=== PATIENT | male | born 2005 | race Caucasian/White ===

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

== ENCOUNTER 2025-01-20 12:36 | Emergency (ER) | payer OTHER, MEDICAID, SELFPAY ==
--- NOTE | ~2025-01-20 | XR_ITS ---
EXAMINATION: XR ANKLE, RIGHT CLINICAL INFORMATION: swelling/pain COMPARISON: None available. TECHNIQUE: AP, lateral, and mortise views of the right ankle. FINDINGS: No fracture, dislocation, or suspicious bone lesion. Normal bone mineralization. Normal alignment. The mortise is intact. The talar dome is normal. Joint spaces are preserved. No significant arthropathy. No definite ankle joint effusion. Mild circumferential soft tissue swelling. XR/XR ankle RT min 3V IMPRESSION: 1. No acute bony abnormalities of the right ankle. Electronically signed by: Pk Schrader MD 01/20/2025 01:18 PM EST
--- NOTE | ~2025-01-20 | XR_ITS ---
EXAMINATION: XR FOOT, RIGHT CLINICAL INFORMATION: pain, swelling COMPARISON: April 13, 2018 TECHNIQUE: AP, lateral, and oblique views of the right foot. FINDINGS: The bones and soft tissues are normal. No fracture. Alignment is anatomic. Joint spaces are maintained. XR/XR foot RT min 3V IMPRESSION: Unremarkable right foot. Electronically signed by: Vinicio Day MD 01/20/2025 01:20 PM [facility]
[2025-01-20 12:48] VITALS: BP 120/64; PULSE 62; RESP 18; TEMP 36.7; O2SAT 99; BMI 38.0
--- NOTE | 2025-01-20 13:26 | ED_ITS ---
HPI - Extremity Injury (Lower) General Chief Complaint: Extremity Injury, Lower Stated Complaint: Injury Time Seen by Provider: 01/20/25 13:25 Source: patient and old records reviewed Mode of arrival: ambulatory Limitations: no limitations History of Present Illness ED Provider: Katerina Garcia PA-C HPI Narrative: This is a 19-year-old male who presents emergency department with concerns of right ankle pain for the last 3 days. Patient denies any known injury. Reports that he spends a lot of time standing on his feet. He reports that he has had increased swelling to his right ankle with the associated pain. No former injury to the ankle and foot in the past. No calf pain. No recent travel, surgery, or hospitalizations. No other complaints or concerns at this time. MD complaint: ankle injury and foot injury Severity: moderate Relieving factors: nothing Exacerbating factors: weight bearing, movement and palpation Associated symptoms: swelling Related Data Previous Rx's ?Medication ?Instructions ?Recorded amoxicillin 875 mg-potassium 1 tab PO BID 7 days #14 t abs 01/20/23 clavulanate 125 mg tablet ibuprofen 600 mg tablet 600 mg PO Q6H PRN pain #30 t abs 01/20/23 chlorhexidine gluconate 0.12 % 15 ml buccal DAILY #120 mL 01/21/23 mouthwash Allergies Allergy/AdvReac Type Severity Reaction Status Date / Time No Known Allergies (No Known Allergy Verified 01/20/25 12:49 Allergies*) Review of Systems Review of Systems: Constitutional : No Fever, No Chills ENT/Mouth : No sore throat, No Rhinorrhea Eyes: No Eye Pain, No Swelling, No Redness Cardiovascular : No Chest Pain, No SOB Respiratory : No Cough, No Sputum Gastrointestinal : No Nausea, No Vomiting, No Diarrhea, No abdominal Pain Genitourinary : No Dysuria, No Hematuria Musculoskeletal : No joint pain, No Myalgias, +Joint Swelling Skin : No Skin Lesions Neuro : No Weakness, No Numbness, No Headache All other systems reviewed and are negative Yes all other systems are reviewed and are negative Constitutional: Constitutional: Reports as per [facility] Social History Social History Advance Directives: No Advance Directives Information Provided: No Physical Exam Exam: Exam: General: Awake, alert, and oriented X3. No acute distress. HEENT: Normal inspection CVS: Normal heart rate and rhythm. Pulses normal. Respiratory: No respiratory distress Skin: Warm, dry, no rashes noted to exposed skin. Normal skin color. Normal skin turgor. Extremities: mild edema noted along the dorsum of the right foot with mild tenderness palpation. He has no medial or lateral malleoli tenderness. Strong DP PT pulses. No overlying erythema or rashes. No open wounds. Able to plantar and dorsiflex. Sensation intact. Neuro: Oriented X 3. No motor deficit. No sensory deficit. Vital Signs: Vital Signs: Last Vital Signs Temp 98.0 F 01/20/25 14:20 Pulse 62 01/20/25 14:20 Resp 18 01/20/25 14:20 BP 120/64 01/20/25 14:20 Pulse Ox 99 01/20/25 14:20 O2 Del Method Room Air 01/20/25 14:20 BMI result Body Mass Index 38.0 Medical Decision Making Medical Decision Making MDM Narrative: This is a 19-year-old male who presents emergency department with complaints of atraumatic right ankle pain for the last 2-3 days. Unknown injury. On arrival, vital signs within normal limits. He is speaking full sentences under no acute distress. Right foot dorsal aspect there is mild edema noted, no calf tenderness. Malleoli are nontender. X-rays were obtained revealing no acute bony abnormalities. Patient unsure of any injury however given swelling and pain with weight-bearing, will place patient in a walking boot, and crutches. Given conservative treatment measures and given strict return precautions. He understands and agrees with plan. Patient stable for discharge. Differential Diagnosis Differential Diagnoses: The differential diagnosis associated with the presentation includes Fracture, contusion, sprain, strain Radiology Impression Discussion of test interpretation with radiology: I have reviewed the radiologist's reading. Radiologist Impression: FINDINGS: The bones and soft tissues are normal. No fracture. Alignment is anatomic. Joint spaces are maintained. XR/XR foot RT min 3V IMPRESSION: Unremarkable right foot. Electronically signed by: Vinicio Day MD 01/20/2025 01:20 PM [facility] Dictated By: Vinicio Day MD XR/XR ankle RT min 3V IMPRESSION: 1. No acute bony abnormalities of the right ankle. Electronically signed by: Pk Schrader MD 01/20/2025 01:18 PM [facility] Dictated By: Pk Schrader MD Discharge Plan Discharge Clinical Impression: Ankle sprain and strain Right foot strain Qualifiers: Encounter type: initial encounter Qualified Code(s): S96.911A - Strain of unspecified muscle and tendon at ankle and foot level, right foot, initial encounter Patient Disposition: Home, Self-Care Instructions: Ankle Sprain (ED), P.R.I.C.E. Treatment (ED), Walking Boot (ED) Additional Instructions: You were seen in the emergency department due to right foot and ankle pain and swelling. Your x-rays do not show any broken bones. It is unclear why you have pain and inflammation in your ankle and foot however this should resolve over the next several days up to several weeks. Please rest, ice, and elevate your right foot and ankle. Use crutches and walking boot as needed. Use this when your weight-bearing. You do not need to keep the walking boot on at all times. Use the walking boot until you no longer have pain with weight-bearing. You may alternate between ibuprofen and or Tylenol as needed for pain and symptoms. If any new or worsening symptoms occur including but not limited to worsening pain, decreased sensation in your foot, color changes, please seek emergent care. You can continue to have pain and symptoms in your right foot and ankle after resting for several weeks, you can follow-up with the clinical application specialist, call to make an appointment. Prescriptions: No Action amoxicillin-pot clavulanate 875-125 mg tablet 1 tab PO BID 7 Days Qty: 14 0RF ibuprofen 600 mg tablet 600 mg PO Q6H PRN (Reason: pain) Qty: 30 0RF chlorhexidine gluconate 0.12 % mouthwash 15 ml buccal DAILY Qty: 120 0RF Referrals: [facility] [place]Provider Group] Stand Alone Forms: Work/School Release Interventions: ED Discharge Assessment Last Done: 01/20/25 14:20 Discharge Date/Time: 01/20/25 14:21 Print Language: Hong Konger
[2025-01-20 14:20] VITALS: BP 120/64; PULSE 62; RESP 18; TEMP 36.7; O2SAT 99
--- NOTE | 2025-01-20 14:21 | PC.NURSE ---
Pt tolerated walking boot placement well, fitting adjusted, crutches adjusted to comfort and correct positioning. Crutches education received, pt able to demonstrate safe and proper technique prior to DC
--- OUTSIDE RECORDS SUMMARY | 2025-01-20 18:31 | XMS_ITS | Clinical Summary ---
Author Organization [facility] Address [address] [facility] [address] [place] [id number] Phone Care Team Providers Care Forge Operator Name Role Phone Gema Marina MD Primary Care Provider [phone] Allergies No known active allergies Active Problems Problem Noted Date Diagnosed Date History of constipation 11/11/2016 Obesity due to excess calories 11/09/2016 Social History Tobacco Use Types Packs/Day Years Used Date Smoking Tobacco: Never Assessed Education Answer Date Recorded Are you interested in more education? Not on damaris e 06/24/2022 Are you concerned about learning? Not on file 06/24/2022 No 06/24/2022 No 06/24/2022 Digital Access Answer Date Recorded No 07/25/2022 No 07/25/2022 No 07/25/2022 Reliable internet access at home? Not on file 07/25/2022 Device with a working camera? Not on file Sex and Gender Information Value Date Recorded Sex Assigned at Not on file Legal Sex Male 4:46 PM EDT Gender Identity Not on file Sexual Orientation Not on file Last Filed Vital Signs Vital Sign Reading Time Taken Comments Blood Pressure - - Pulse - - Temperature - - Respiratory Rate - - Oxygen Saturation - - Inhaled Oxygen Concentration - - Weight 64.7 kg (142 lb 9.6 oz) 11/09/2016 3:24 P M EDT Height 148 cm (4' 10.27 ) 11/09/2016 3:24 PM EDT Body Mass Index 29.53 11/09/2016 3:24 PM EDT Body Mass Index Percentile 98.74% 11/09/2016 3:2 4 PM EDT Growth Chart: CDC (Boys, 2-2 0 Years) Plan of Treatment Health Maintenance Due Date Last Done Comments BMI ASSESSMENT 2008 DEVELOPMENTAL/BEHAVIORAL SCREENING (PHQ, PSC, or SWYC) 2008 DEPRESSION SCREENING 2017 SMOKING Hx and SMOKELESS TOBACCO SCREENING 2018 MENINGOCOCCAL VACCINES (B) (1 of 2 - Standard) 2021 ADOLESCENT UNIVERSAL LIPID SCREENING 2022 HEPATITIS C SCREENING 05/27/2023 HIV ONE-TIME SCREENING (18-65 YEARS) 05/27/2023 INFLUENZA VACCINE (#1) 2024 , 12/04/2014, 12/06/2006 COVID-19 VACCINE (3 - season) 2024 10/07/2020, 09/16/2020 COMBINED DTaP,Tdap,Td (7 - Td or Tdap) 05/31/2026 05/31/2016, 06/01/2009, 09/04/2006, Additional history exists HEPATITIS B VACCINES Completed 01/10/2006, 2005, 2005 HIB VACCINES Completed 09/04/2006, 10/2006, 2005, Additional history exists PNEUMOCOCCAL VACCINES (0-49 years) Completed 09/04/2006, 01/10/2006, 2005, Additional history exists HEPATITIS A VACCINES Completed 12/06/2006, 05/30/19 07 MMR VACCINES Completed 06/01/2009, 05/29/2006 VARICELLA VACCINES Completed 06/01/2009, 05/29/2006 MENINGOCOCCAL VACCINES (ACWY) Aged Out 05/31/2016 No longer eligible based on patient's age to complete this topic HPV VACCINES Completed 09/25/2017, 05/31/2016 Medical Devices Not on file Insurance [employer] HMO POS EPO [address] [facility] [facility] EPO B[place] [id number] AETNA O POS EPO AETNA O POS EPO AETNA O POS EPO AETNA O POS EPO [place] [id number] AETNA O POS EPO [place] [id number] AETNA O POS EPO AETNA O POS EPO AENA O POS EPO AETNA O POS EPO AETNA O POS EPO AETNA O POS EPO [facility] EPO AENA O POS EPO AETNA O POS EPO AETNA O POS EPO Care Teams Forge Operator Relationship Specialty Start Date End Date Gema Marina MD [address] [place] [address] PCP - General Pediatrics 11/09/16 Additional Source Comments The information contained in this document represents components of the legal health record. It is not the complete legal health record.[facility]
== END 2025-01-20 14:21 | disposition home or self-care (01) ==
PROVIDERS: Emergency Provider Emergency Medicine; PCP Internal Medicine
DX: S93.401A Sprain of unspecified ligament of right ankle, initial encounter (principal); S96.911A Strain of unspecified muscle and tendon at ankle and foot level, right foot, initial encounter; X58.XXXA Exposure to other specified factors, initial encounter; Y93.9 Activity, unspecified; Y92.9 Unspecified place or not applicable
CPT/HCPCS: 73610; 73630; 99283

== ENCOUNTER → 2025-01-20 13:05 | Outpatient (BNV) | payer OTHER, MEDICAID, SELFPAY | PROVIDERS: Emergency Provider Emergency Medicine; PCP Internal Medicine; Visit Provider Radiology Diagnostic Radiology | DX: R22.41 Localized swelling, mass and lump, right lower limb (principal); M25.571 Pain in right ankle and joints of right foot; M79.671 Pain in right foot | CPT/HCPCS: 73610; 73630 ==

== ENCOUNTER 2025-01-29 17:57 | Emergency (ER) | payer OTHER, MEDICAID, SELFPAY ==
--- NOTE | ~2025-01-29 | US_ITS ---
CLINICAL HISTORY: Bilateral leg swelling foot swelling Venous duplex ultrasound bilateral lower extremity Comparison: None provided Findings: The visualized deep veins are fully compressible with normal Doppler color flow and spectral tracings. No popliteal cyst. IMPRESSION: 1. Negative for bilateral lower extremity deep vein thrombosis. This document has been electronically signed by: Huma Leon MD on 01/29/2025 20:24:48
[2025-01-29 18:59] VITALS: BP 136/70; PULSE 82; RESP 20; TEMP 36.3; O2SAT 95; BMI 38.7
--- NOTE | 2025-01-29 19:02 | ED_ITS ---
HPI - General Adult General Chief complaint: General Medical Stated complaint: swollen feet bilateral Time Seen by Provider: 01/29/25 22:47 Source: patient, family, RN notes reviewed and old records reviewed Mode of arrival: ambulatory Limitations: no limitations History of Present Illness ED Provider: Keila RUBIO narrative: Patient is a 19 year old male presenting today with a 4 day history of bilateral ankle pain and swelling. Pt states 4 days ago , started with pain in right medial ankle. However, the pt was seen 01/20 for the pain, Xray of right foot and ankle were unremarkable and he was discharged with a walking boot. Pt states 2 days ago the swelling developed and the pain has since resolved. No erythema, warmth, or pitting. No fever or chills. Pt does work at [employer] and is on his feet all day. The mother reports that she tries to avoid excessive salt when cooking as the patient has been previously told he has high blood pressure at a PCP visit but the patient does eat chips daily. Has tried warm soaks and elevation of his feet. Related Data Previous Rx's ?Medication ?Instructions ?Recorded amoxicillin 875 mg-potassium 1 tab PO BID 7 days #14 t abs 01/20/23 clavulanate 125 mg tablet ibuprofen 600 mg tablet 600 mg PO Q6H PRN pain #30 t abs 01/20/23 chlorhexidine gluconate 0.12 % 15 ml buccal DAILY #120 mL 01/21/23 mouthwash Allergies Allergy/AdvReac Type Severity Reaction Status Date / Time No Known Allergies (No Known Allergy Verified 01/29/25 19:01 Allergies*) Review of Systems 2 Constitutional: Constitutional: Reports as per HPI, Denies chills, Denies fatigue, Denies fever(s) and Denies headache(s) ENT: Denies headache(s) Cardiovascular: Cardiovascular: Denies chest pain, Reports pedal edema, Reports leg edema and Denies dyspnea Respiratory: Respiratory: Denies cough and Denies dyspnea Gastrointestinal: Gastrointestinal: Denies abdominal pain, Denies constipation and Denies vomiting Genitourinary: Genitourinary: Denies difficulty urinating and Denies dysuria Neurologic: Denies headache(s) and Denies focal weakness Endocrine: Endocrine: Denies fatigue [facility] Social History Social History Smoked in Last 30 Days: No Use of substances other than those prescribed or required for medical reasons: No Advance Directives: No Advance Directives Information Provided: Yes Do you have a plan to hurt others: No Plan Physical Exam ED Vital Signs: Vital Signs - 24 hr 01/29/25 18:59 01/29/25 22:03 01/29/25 23:26 Temperature 97.4 F 98.5 F 98.5 F Pulse Rate 82 75 75 Respiratory Rate 20 16 16 Blood Pressure 136/70 132/61 132/61 Pulse Oximetry 95 96 96 Oxygen Delivery Method Room Air Room Air Room Air BMI result Body Mass Index 38.7 Const General: healthy appearing, comfortable, no acute distress, alert and awake Nutritional Appearance: well nourished Orientation/consciousness: patient oriented x3 HENMT Head: Yes normocephalic and Yes atraumatic Eyes Eyelids: Yes eyelids normal Conjunctivae: conjunctivae normal Sclerae: sclerae normal Corneas: corneas normal Neck Neck: Yes full ROM Resp Effort & Inspection: normal respiratory effort, able to speak in complete sentences, no audible wheezes and not labored Cardio Other: 1+ nonpitting edema to lower extremities bilaterally Skin General skin exam: no rashes or lesions noted and elasticity normal Neuro General: patient oriented x3 Cognition (Neuro): normal cognition Extrem Other: Moving all extremities well without any obvious deformities Course Course Course Narrative: RME: 19 yold male presents to the ED for bilateral feet leg swelling for couple of days without any trauma. patient states no chest pain or shorntess of breath. labs, xray ordeed Medical Decision Making Medical Decision Making [facility] Narrative: 19-year-old male presents for evaluation of atraumatic leg swelling bilaterally. He was seen here on 01/20/2025 and had x-rays of the ankles that did not show any fractures. Today he reports his pain is still present and now he has leg swelling. He has no evidence of infectious process, ultrasounds are negative for DVT. He has no history of CHF. There was again no trauma. He has good skin color, extremities are warm, well perfused. I suspect the patient's symptoms are likely related to lifestyle with increased sodium in his diet and standing daily. I advised changes to these and the patient can safely be discharged. Differential Diagnosis Differential Diagnoses: The differential diagnosis associated with the presentation includes Dependent edema Hypovolemia DVT Cellulitis CHF Lab Data [facility] Lab Attestation statement: I reviewed the patient's lab results. Mild leukocytosis of unclear etiology, no significant anemia. Normal platelet count. No electrolyte abnormalities warranting dimension. 01/29/25 19:26 01/29/25 19:26 Labs: Lab Results 01/29/25 Range/Units 19:26 WBC 10.9 H (4.8-10.8) X10*3/uL RBC 5.53 (4.60-5.80) X10*6/uL Hgb 13.7 L (14.0-18.0) g/dl Hct 43.9 (42.0-52.0) % MCV 79.4 L (80.0-98.0) fL MCH 24.8 L (27.0-33.0) pg MCHC 31.2 (31.0-36.0) g/dl RDW 13.9 (11.0-16.0) % Plt Count 307 (160-400) X10*3/uL MPV 10.9 (9.4-12.4) fL Immature Gran % (Auto) 0.4 (0.0-0.4) % Neut % (Auto) 55.9 (45-73) % Lymph % (Auto) 23.8 (20-40) % Wirt % (Auto) 10.8 (2-11) % Eos % (Auto) 8.3 H (0-4) % Baso % (Auto) 0.8 (0-2) % Lymph # (Auto) 2.6 (1.2-4.9) X10*3/uL Wirt # (Auto) 1.2 (0.1-1.2) X10*3/uL Eos # (Auto) 0.9 H (0.0-0.4) X10*3/uL Baso # (Auto) 0.1 (0.0-0.2) X10*3/uL Abs Immat Gran (auto) 0.04 H (0.00-0.03) X10*3/uL Absolute Neuts (auto) 6.1 (2.0-8.3) x10*3/uL Absolute Nucleated RBC 0.000 (0.0-0.012) X10*3/uL Nucleated RBC % (auto) 0.0 (0.0-0.2) /100WBC PT 12.8 (11.2-13.5) SEC INR 1.0 (0.9-1.1) APTT 26.9 (26.7-34.1) SEC Sodium 140 (135-145) mmol/L Potassium 4.3 (3.3-5.1) mmol/L Chloride 105 (96-108) mmol/L Carbon Dioxide 28 (22-29) mmol/L Anion Gap 11 L (12-20) BUN 17 H (9-16) mg/dL Creatinine 0.80 (0.5-1.4) mg/dL Estim Creat Clear Calc 171.8 Estimated GFR > 60 Random Glucose 89 (60-115) mg/dL Calcium 9.3 (8.4-10.2) mg/dL Total Bilirubin 0.5 (0.0-1.0) mg/dL AST 34 (5-37) U/L ALT 42 H (0-40) U/L Alkaline Phosphatase 102 (39-117) U/L NT-Pro-B Natriuret Pep 53.8 (<300) pg/mL Total Protein 7.4 (6.5-8.0) g/dL Albumin 4.9 (3.5-5.0) g/dL Radiology Impression Discussion of test interpretation with radiology: I have reviewed the radiologist's reading. Radiologist Impression: Findings: The visualized deep veins are fully compressible with normal Doppler color flow and spectral tracings. No popliteal cyst. IMPRESSION: 1. Negative for bilateral lower extremity deep vein thrombosis. This document has been electronically signed by: Huma Leon MD on 01/29/2025 20:24:48 Discharge Plan Discharge Clinical Impression: Dependent edema Patient Disposition: Home, Self-Care Instructions: Leg Edema (ED) Additional Instructions: Your workup in the ER today was reassuring. Your ultrasound shows no evidence of blood clots. Your blood work was reassuring pain There is no evidence of infection pain Your leg swelling is likely due to multiple factors including salt intake and standing for long periods of time I recommend reducing your salt intake. Elevate your legs above your heart while resting. Follow up with your primary doctor, return for new or worsening symptoms Prescriptions: No Action amoxicillin-pot clavulanate 875-125 mg tablet 1 tab PO BID 7 Days Qty: 14 0RF ibuprofen 600 mg tablet 600 mg PO Q6H PRN (Reason: pain) Qty: 30 0RF chlorhexidine gluconate 0.12 % mouthwash 15 ml buccal DAILY Qty: 120 0RF Stand Alone Forms: Work/School Release Interventions: ED Discharge Assessment Last Done: 01/29/25 23:26 Discharge Date/Time: 01/29/25 23:27 Print Language: Thai
[2025-01-29 19:36] LABS: MANUAL DIFF FLAG NO
[2025-01-29 19:46] LABS: Hematocrit 43.9 % (42.0-52.0); Hemoglobin 13.7 g/dl (14.0-18.0); Imm Gran Abs Auto 0.04 X10*3/uL (0.00-0.03); Imm Gran Pct Auto 0.4 % (0.0-0.4); Lymphocytes Absolute Auto 2.6 X10*3/uL (1.2-4.9); Mean Corpuscular HGB Conc 31.2 g/dl (31.0-36.0); Mean Corpuscular Hemoglobin 24.8 pg (27.0-33.0); Mean Corpuscular Volume 79.4 fL (80.0-98.0); NRBC Abs Auto 0.000 X10*3/uL (0.0-0.012); NRBC Pct Auto 0.0 /100WBC (0.0-0.2); Platelet Count 307 X10*3/uL (160-400); Red Blood Count 5.53 X10*6/uL (4.60-5.80); White Blood Count 10.9 X10*3/uL (4.8-10.8)
[2025-01-29 19:54] LABS: Alanine Aminotransferase 42 U/L (0-40); Albumin Level 4.9 g/dL (3.5-5.0); Alkaline Phosphatase 102 U/L (39-117); Anion Gap 11 (12-20); Aspartate Amino Transferase 34 U/L (5-37); Blood Urea Nitrogen 17 mg/dL (9-16); Calcium 9.3 mg/dL (8.4-10.2); Carbon Dioxide 28 mmol/L (22-29); Chloride 105 mmol/L (96-108); Creatinine Clr Calc Pharmacy 171.8; Estimated Glomerular Filt Rate > 60; Potassium 4.3 mmol/L (3.3-5.1); Sodium 140 mmol/L (135-145); Total Protein 7.4 g/dL (6.5-8.0)
[2025-01-29 19:56] LABS: INTERNATIONAL NORM RATIO 1.0 (0.9-1.1); Prothrombin Time 12.8 SEC (11.2-13.5)
[2025-01-29 19:59] LABS: Partial Thromboplastin Time 26.9 SEC (26.7-34.1)
--- OUTSIDE RECORDS SUMMARY | 2025-01-29 20:00 | XMS_ITS | Clinical Summary ---
Author Organization [facility] Address [address] [facility] [address] [place] [phone] Phone Care Team Providers Care Oracle Specialist Name Role Phone Gema Marina MD Primary Care Provider [phone] Allergies No known active allergies Active Problems [...] [facility] [facility] POS EPO Bets[address] [address] AETNA O POS EPO AETNA O POS EPO AETNA O POS EPO AETNA O POS EPO [place] [address] AETNA O POS EPO [place] [address] AETNA O POS EPO AETNA O POS EPO AENA O POS EPO AETNA O POS EPO AETNA O POS EPO AETNA O POS EPO [facility]PO AENA O POS EPO AETNA O POS EPO AETNA O POS EPO Care Teams Oracle Specialist Relationship Specialty Start Date End Date Gema Marina MD [address] [place] [address] PCP - General Pediatrics 11/09/16 Additional Source Comments The information contained in this document represents components of the legal health record. It is not the complete legal health record.[facility]
[2025-01-29 20:02] LABS: NT Pro B Type Natriuretic Pept 53.8 pg/mL (<300)
[2025-01-29 22:03] VITALS: BP 132/61; PULSE 75; RESP 16; TEMP 36.9; O2SAT 96
[2025-01-29 23:26] VITALS: BP 132/61; PULSE 75; RESP 16; TEMP 36.9; O2SAT 96
--- NOTE | 2025-01-29 23:26 | PC.NURSE ---
reviewed discharge instructions with pt. pt verbalized understanding, no sign of distress upon discharge, steady gait.
== END 2025-01-29 23:27 | disposition home or self-care (01) ==
PROVIDERS: Physician Assistant; Emergency Provider Emergency Medicine; PCP Internal Medicine
DX: M25.472 Effusion, left ankle (principal); M25.471 Effusion, right ankle; M25.572 Pain in left ankle and joints of left foot; M25.571 Pain in right ankle and joints of right foot; M79.672 Pain in left foot; M79.671 Pain in right foot; I10 Essential (primary) hypertension
CPT/HCPCS: 36415; 80053; 83880; 85025; 85610; 85730; 93970; 99284

== ENCOUNTER → 2025-01-29 19:01 | Outpatient (BNV) | payer OTHER, MEDICAID, SELFPAY | PROVIDERS: PCP Internal Medicine; Visit Provider Nuclear Medicine | DX: R22.43 Localized swelling, mass and lump, lower limb, bilateral (principal) | CPT/HCPCS: 93970 ==

== ENCOUNTER 2025-02-12 07:41 | Outpatient (REF) | payer OTHER, MEDICAID, SELFPAY ==
[2025-02-12 09:36] LABS: MANUAL DIFF FLAG NO
[2025-02-12 09:57] LABS: Hematocrit 44.8 % (42.0-52.0); Hemoglobin 13.9 g/dl (14.0-18.0); Imm Gran Abs Auto 0.02 X10*3/uL (0.00-0.03); Imm Gran Pct Auto 0.2 % (0.0-0.4); Lymphocytes Absolute Auto 1.5 X10*3/uL (1.2-4.9); Mean Corpuscular HGB Conc 31.0 g/dl (31.0-36.0); Mean Corpuscular Hemoglobin 24.3 pg (27.0-33.0); Mean Corpuscular Volume 78.5 fL (80.0-98.0); NRBC Abs Auto 0.000 X10*3/uL (0.0-0.012); NRBC Pct Auto 0.0 /100WBC (0.0-0.2); Platelet Count 287 X10*3/uL (160-400); Red Blood Count 5.71 X10*6/uL (4.60-5.80); White Blood Count 8.3 X10*3/uL (4.8-10.8)
[2025-02-12 10:36] LABS: Alanine Aminotransferase 37 U/L (0-40); Albumin Level 4.9 g/dL (3.5-5.0); Alkaline Phosphatase 104 U/L (39-117); Anion Gap 11 (12-20); Aspartate Amino Transferase 36 U/L (5-37); Blood Urea Nitrogen 14 mg/dL (9-16); Calcium 9.5 mg/dL (8.4-10.2); Carbon Dioxide 26 mmol/L (22-29); Chloride 106 mmol/L (96-108); Estimated Glomerular Filt Rate > 60; Potassium 4.2 mmol/L (3.3-5.1); Sodium 139 mmol/L (135-145); Total Protein 7.4 g/dL (6.5-8.0)
[2025-02-12 10:40] LABS: Thyroid Stimulating Hormone 0.78 uIU/mL (0.32-4.0)
== END 2025-02-12 07:42 | disposition home or self-care (01) ==
LOC: HO.LAB 07:41
PROVIDERS: Absent Provider Internal Medicine; PCP Internal Medicine; Visit Provider Student in an Organized Health Care Education/Training Program
DX: S99.911A Unspecified injury of right ankle, initial encounter (principal); S93.401A Sprain of unspecified ligament of right ankle, initial encounter; M25.571 Pain in right ankle and joints of right foot; Y93.89 Activity, other specified; Y99.0 Civilian activity done for income or pay; X50.9XXA Other and unspecified overexertion or strenuous movements or postures, initial encounter; Z13.29 Encounter for screening for other suspected endocrine disorder
CPT/HCPCS: 36415; 80053; 84443; 85025

== ENCOUNTER 2025-02-12 07:41 | Outpatient (AMB) | payer OTHER, MEDICAID, SELFPAY ==
--- OUTSIDE RECORDS SUMMARY | 2025-02-12 07:43 | XMS_ITS | Clinical Summary ---
Author Organization [facility] Address [address] [facility] [address] [place] [address] Phone Care Team Providers Care Software Project Lead Name Role Phone Gema Marina MD Primary Care Provider [phone] Allergies No known active allergies Active Problems [...] Betsy [address] [facility] EPO [address] [address] AETNA O POS EPO AETNA O POS EPO AETNA O POS EPO AETNA O POS E[place] [address] AETNA O POS EPO [place] [address] AETNA O POS EPO AETNA O POS EPO AENA O POS EPO AETNA O POS EPO AETNA O POS EPO AETNA O POS EPO [facility] AENA O POS EPO AETNA O POS EPO AETNA O POS EPO Care Teams Software Project Lead Relationship Specialty Start Date End Date Gema Marina MD [address] [place] [address] PCP - General Pediatrics 11/09/16 Additional Source Comments The information contained in this document represents components of the legal health record. It is not the complete legal health record.[facility]
[2025-02-12 08:02] VITALS: BMI 38.6
--- NOTE | 2025-02-12 08:02 | A.OFFVIS_ITS ---
Vital Signs 02/12/25 08:02 Height 5 ft 6 in Weight 239 lb BMI 38.6 Intake Visit Reasons: Ankle sprain and strain Intake Note: Juan J is a 19 year old male who presents today as a new patient for an evaluation of his right ankle sprain. patient reports injury occurred while he was at work and may have twisted his ankle. He was seen at [facility] where he was provided with a cam boot. X-rays is all set in chart. Patient mother mentions she has notices swelling in bilateral ankle around 01/31/25 however it has since improved since then. Allergies No Known Allergies (No Known Allergies*) Allergy (Verified 02/12/25 08:05) HPI Comments Details: The patient is a 19 year old male with a PMH as seen below presenting for evaluation of right ankle pain. He sustained a twisting injury to his right ankle and reports compensating on his LLE which now has caused mild pain to the left ankle as well. The pain to the right ankle is rated as 3/10 at rest and can increase to 7/10. Following the injury, he was evaluated in an emergency room where x-rays were negative for any fractures. He was provided a CAM boot, which he has been using and finds effective, though he is not permitted to wear it at work. The patient also reports his feet have become swollen, and a venous ultrasound was performed which was negative for blood clots. Home care has included massages, hot water soaks, and an unspecified ointment, which have provided some relief. He has also been taking [id number] medications such as ibuprofen or Tylenol. He denies any other pedal concerns. Patient was accompanied by his mother. [facility] Medical History (Updated 02/13/25 @ 20:22 by Carito Cote DPM) Right ankle sprain Right ankle pain Right ankle injury Review of Systems Const Details: - Musculoskeletal: Reports right ankle pain with intermittent compensatory pain to the left ankle. All systems reviewed & are unremarkable except as noted in HPI and below Physical Exam Vital Signs: BMI result Body Mass Index 38.6 Extrem Other: RLE Focused Physical Exam: Derm: No open lesions, abrasions, or wounds noted. Skin supple and turgor WNL. No ecchymosis or discoloration noted. No clinical signs of infection noted. No maceration or hyperkeratotic areas noted. Vasc: DP/PT pulses palpable. CFT < 3 secs. Temp gradient warm to warm. Pedal hair present. No varicosities noted. Mild edema noted to the ankle. Neuro: Protective sensations grossly intact. MSK: Mild pain on palpation to the medial aspect and lateral aspects of the ankle. Pain with plantarflexion, eversion, and inversion. No crepitus or fluctuance noted. Mildly antalgic gait noted in a CAMboot. No other gross abnormalities noted. Negative anterior drawer test. Results Reviewed Results Reviewed: Podiatry read of right ankle xray (01/20/25): No acute fractures or dislocation noted. Joint spacing WNL. Right ankle xray (01/20/25): FINDINGS: No fracture, dislocation, or suspicious bone lesion. Normal bone mineralization. Normal alignment. The mortise is intact. The talar dome is normal. Joint spaces are preserved. No significant arthropathy. No definite ankle joint effusion. Mild circumferential soft tissue swelling. IMPRESSION: 1. No acute bony abnormalities of the right ankle. Podiatry read of right foot xray (01/20/25): No acute fractures or dislocations noted. Joint spacing WNL. Right foot xray (01/20/25): FINDINGS: The bones and soft tissues are normal. No fracture. Alignment is anatomic. Joint spaces are maintained. IMPRESSION: Unremarkable right foot. RLE venous duplex (01/29/25): Findings: The visualized deep veins are fully compressible with normal Doppler color flow and spectral tracings. No popliteal cyst. IMPRESSION: 1. Negative for bilateral lower extremity deep vein thrombosis. Results - Imaging: X-rays of the ankle did not show any fractures. - Tests and Diagnostics: A venous ultrasound was negative for blood clots. Assessment & Plan Assessment & Plan (1) Right ankle injury: Code(s): S99.911A - Unspecified injury of right ankle, initial encounter Category: Medical Qualifiers: Encounter type: initial encounter Qualified Code(s): S99.911A - Unspecified injury of right ankle, initial encounter (2) Right ankle pain: Code(s): M25.571 - Pain in right ankle and joints of right foot Category: Medical Qualifiers: Chronicity: acute Qualified Code(s): M25.571 - Pain in right ankle and joints of right foot (3) Right ankle sprain: Code(s): S93.401A - Sprain of unspecified ligament of right ankle, initial encounter Category: Medical Qualifiers: Encounter type: initial encounter Involved ligament of ankle: unspecified ligament Qualified Code(s): S93.401A - Sprain of unspecified ligament of right ankle, initial encounter Plan Patient was informed and verbally consented to the use of an ambient scribe for clinic note documentation during this visit. I explained to the patient and his mother that his xrays were negative for any fractures and his symptoms are consistent with a sprain. We discussed that the venous ultrasound was negative, ruling out a blood clot. I recommended a lace-up ankle brace for stability during activity and prescribed meloxicam to manage pain and inflammation. I advised continuing with ice, elevation, and compression for swelling. We agreed on a follow-up visit in one month, with the understa nding that if he is still experiencing significant pain, physical therapy would be the next step to rebuild strength. - The patient was provided with a lace-up ankle brace to provide stability, which can be worn while at work. - A prescription for meloxicam was sent to the pharmacy to help with pain and swelling. - The patient was advised to continue supportive care including using compression, elevating the RLE, and applying ice. Advised patient to avoid barefoot walking and to wear supportive shoe gear. - If pain persists at the time of follow-up, a referral for physical therapy will be considered to help restore strength. RTC in1 month. Medications: New meloxicam 15 mg PO DAILY 30 tabs 0RF M25.571 - Pain in right ankle and joints of right foot, S93.401A - Sprain of unspecified ligament of right ankle, initial encounter, S99.911A - Unspecified injury of right ankle, initial encounter Discontinued ibuprofen Discontinued Reason: Change Referral Type 600 mg PO Q6H PRN 30 tabs 0RF pain chlorhexidine gluconate 0.12% Discontinued Reason: Patient no longer taking 15 mL buccal DAILY 120 mL 0RF amoxicillin-pot clavulanate 875-125 mg Discontinued Reason: Patient no longer taking 1 tab PO BID 7 days 14 tabs 0RF Coding Level of Care Code New Pt Level 4 (08300) Diagnoses Injury of right ankle, initial encounter S99.911A Encounter type: initial encounter Acute right ankle pain M25.571 Chronicity: acute Sprain of right ankle, unspecified ligament, initial encounter S93.401A Encounter type: initial encounter Involved ligament of ankle: unspecified ligament Time Spent (min) 47
== END 2025-02-12 08:27 | disposition home or self-care (01) ==
PROVIDERS: PCP Internal Medicine; Visit Provider Student in an Organized Health Care Education/Training Program
DX: S99.911A Unspecified injury of right ankle, initial encounter (principal); M25.571 Pain in right ankle and joints of right foot; S93.401A Sprain of unspecified ligament of right ankle, initial encounter
CPT/HCPCS: 99204